=== PATIENT | female | born 1955 ===

== ENCOUNTER 2017-06-05 10:01 | Emergency (ER) | payer OTHER, MEDICAID ==
[2017-06-05 10:01] VITALS: BMI 48.6
[2017-06-05] MEDS ORDERED: Sodium Chloride 0.9% 1,000 ML IV ONE (10:41)
--- NOTE | 2017-06-05 10:41 | C.PDOC ---
History Of Present Illness 06/05/2017 Evelina Mccurdy is a 61 year old female, whose past medical history includes appendicitis, cholecystitis, and hernia repair, presents to the emergency department complaining of abdominal pain in the epigastric region since yesterday. Patient reports yesterday having coffee with milk and began vomiting , feeling lightheadedness, abdominal bloating, and dehydrated. Patient notes taking Zofran, Pepcid, and Bentyl yesterday, but there was no significant relief. Last bowel movement was this morning and according to patient GI Dr. Crisostomo stated patient had stomach inflammation. Patient denies chest pain, shortness of breath, headache, fever, chills, cough, diarrhea, dysuria, hematuria, frequency, flank pain, or other complaints. EPIG PAIN, VOMITING SINCE YEST. IMMEDIATE ONSET AFTER HAVING COFFEE W MILK, PS SIM PAIN IN PAST WHEN WOULD DRINK MILK. PAIN SIM TO PRIOR. GENERALIZED. NO RELIEF W ZOFRAN, PEPCID, BENTYL YEST. NO MEDS TAKEN TODAY. PSH APPY, GRANT, HERNIA REPAIR, LOS. LAST BM THIS MORNING. +LIGHTHEADEDNESS "i THINK IM BECOMING DEHYDRATED". +ABD BLOATING. NO FEVER. GI DR CRISOSTOMO. PS DX "INFLAMMATION IN MY STOMACH" EXAM MILD DIST NONTOXIC HEENT ANICTERIC; MM DRY ABD SOFT NT ND NO R/G REMAINDER NEG Time Seen by Provider: 06/05/17 10:33 Chief Complaint (Nursing): GI Problem History Per: Patient Onset/Duration Of Symptoms: Sudden Onset (yesterday ) Current Symptoms Are (Timing): Still Present Context: Food Associated Symptoms: Nausea, Vomiting Last Bowel Movement: Today (this morning) Recent travel outside of the [place]: No Abnormal Vaginal Bleeding: No Past Medical History Reviewed: Historical Data, Nursing Documentation, Vital Signs Vital Signs: Last Vital Signs Temp 97.7 F 06/05/17 10:10 Pulse 55 L 06/05/17 11:55 Resp 16 06/05/17 11:55 BP 110/62 06/05/17 11:55 Pulse Ox 96 06/05/17 11:55 - Medical History PMH: Asthma, Bronchitis (2013), Diabetes, Fractures (RIGHT ANKLE RIGHT SHOULDER) , Gall Bladder Disease, HTN, Hypothyroidism, Mitral Valve Prolapse, Sleep Apnea Surgical History: Appendectomy, Cholecystectomy, Endoscopy, Tonsillectomy Family History: States: Unknown Family Hx - Social History Hx Tobacco Use: No Hx Alcohol Use: No Hx Substance Use: No - Immunization History Hx Tetanus Toxoid Vaccination: No Hx Influenza Vaccination: No Hx Pneumococcal Vaccination: No Review Of Systems Except As Marked, All Systems Reviewed And Found Negative. Constitutional: Negative for: Fever Cardiovascular: Negative for: Chest Pain Respiratory: Negative for: Shortness of Breath Gastrointestinal: Positive for: Nausea, Vomiting, Abdominal Pain (epigastric region), Other (abdominal bloating) Neurological: Positive for: Other (lightheadedness). Negative for: Headache Physical Exam - Physical Exam Appears: Well, Non-toxic, In Acute Distress (mild) Skin: Normal Color, Warm, Dry Head: Atraumatic, Normacephalic Eye(s): bilateral: Normal Inspection, PERRL, EOMI Nose: Normal Oral Mucosa: Dry Throat: Normal Neck: Normal Cardiovascular: Rhythm Regular Respiratory: Normal Breath Sounds Gastrointestinal/Abdominal: Normal Exam, Soft, No Tenderness, No Distention, No Guarding, No Rebound Back: Normal Inspection Extremity: Normal ROM Neurological/Psych: Oriented x3, Normal Speech, Normal Cognition Gait: Steady ED Course And Treatment - Laboratory Results Result Diagrams: 06/05/17 11:05 06/05/17 11:05 ECG: Interpreted By Pr ECG Rhythm: Sinus Bradycardia ECG Interpretation: Normal Rate From EC O2 Sat by Pulse Oximetry: 95 (on RA) Pulse Ox Interpretation: Normal Progress - Re-Evaluation Re-evaluation Note: 06/05/17 12:42 FEELS BETTER, NV RESOLVED. NO S/S ACUTE ABD. - Data Reviewed Data Reviewed: Lab, EKG, Old records Medical Decision Making Medical Decision Makin06/05/2017 Impression: 61 year old female with epigastric pain and vomiting. Plan: -- Labs -- Morphine, Pepcid, Protonix, Reglan, and Sodium Chloride -- Reassess and disposition Progress Notes: Disposition Counseled Patient/Family Regarding: Studies Performed, Diagnosis, Need For Followup, Rx Given - Disposition Referrals: YOUR,GI DOCTOR [Other] Disposition: HOME/ ROUTINE Disposition Time: 12:43 Condition: IMPROVED Prescriptions: Metoclopramide [Reglan] 1 tab PO TID PRN #25 tab PRN Reason: Nausea/Vomiting oxyCODONE/Acetaminophen [Percocet 5/325 mg Tab] 1 ea PO QID #8 tab Instructions: Acute Abdominal Pain (ED) Forms: [facility] (Irish) - Clinical Impression Clinical Impression: Abdominal pain, Vomiting - Scribe Statement The provider has reviewed the documentation as recorded by the Scribe 06/05/2017 Patt Montgomery Attestation: All medical record entries made by the Scribe were at my direction and personally dictated by me. I have reviewed the chart and agree that the record accurately reflects my personal performance of the history, physical exam, medical decision making, and the department course for this patient. I have also personally directed, reviewed, and agree with the discharge instructions and disposition.
[2017-06-05] MEDS ORDERED: Morphine 4 MG/ML VIAL ONE ×2 (10:51→13:13)
[2017-06-05] MEDS ORDERED: Sodium Chloride 0.9% 1,000 ML ONE (10:52)
[2017-06-05 11:08] LABS: BASO # 0.1 K/uL (0.0-0.2); EOS # 0.1 K/uL (0.0-0.7); EOS % 1.3 % (0.0-4.0); HEMOGLOBIN 13.9 g/dL (11.0-16.0); LYMPH # 1.6 K/uL (1.0-4.3); LYMPH % 18.8 % (20.0-40.0); MEAN CELL VOLUME 84.3 fL (81.0-99.0); MEAN CORPUSCULAR HEMOGLOBIN 27.7 pg (27.0-31.0); MEAN CORPUSCULAR HGB CONC 32.8 g/dL (33.0-37.0); MEAN PLATELET VOLUME 8.7 fL (7.2-11.7); MONO # 0.5 K/uL (0.0-0.8); MONO % 6.3 % (0.0-10.0); NEUT # 6.3 K/uL (1.8-7.0); NEUT % 72.6 % (50.0-75.0); NRBC % 0.1 % (0.0-2.0); RBC 5.03 Mil/uL (3.80-5.20); RED CELL DISTRIBUTION WIDTH 13.9 % (11.5-14.5); WHITE BLOOD COUNT 8.7 K/uL (4.8-10.8)
[2017-06-05 11:17] LABS: ALBUMIN 4.3 g/dL (3.5-5.0)
[2017-06-05 11:19] LABS: GFR AFRICAN-AMERICAN > 60; GFR NON-AFRICAN AMERICAN 56
[2017-06-05 11:20] LABS: ALB/GLOB RATIO 1.3 (1.0-2.1); ALT/SGPT 39 U/L (9-52); AST/SGOT 20 U/L (14-36); BLOOD UREA NITROGEN 13 mg/dL (7-17); CALCIUM 9.3 mg/dl (8.6-10.4); LIPASE 82 U/L (23-300)
[2017-06-05 11:56] VITALS: RESP 16
[2017-06-05 14:02] VITALS: BP 121/68; PULSE 60; TEMP 98.2; O2SAT 100
--- NOTE | 2017-06-06 14:22 | CARD ---
APPROVED REPORT EKG Measurement Heart [id number] IN [id number] [id number] <Conclusion> Sinus bradycardia Cannot rule out Inferior infarct, age undetermined Abnormal ECG
== END 2017-06-05 14:02 | disposition home or self-care (01) ==
LOC: C.ER 10:01
DX: R10.13 Epigastric pain (principal); R11.2 Nausea with vomiting, unspecified
CPT/HCPCS: 80053; 83690; 85025; 93005; 96361; 96374; 96375; 96376; 99285; C9113; J2270; J2765; J7040

== ENCOUNTER 2017-07-07 06:01 | Day surgery (SDC) | payer MEDICARE, MEDICAID ==
[2017-06-27 09:02] VITALS: BMI 36.3
[2017-07-07] MEDS ORDERED: Lidocaine 2% Inj (20ml) ONE (07:30)
[2017-07-07] MEDS ORDERED: Lactated Ringer's 1,000 ML IV ONE (07:50)
[2017-07-07] MEDS ORDERED: Propofol 10 mg/ml Inj (20 ML) ONE (07:51)
[2017-07-07] MEDS ORDERED: Midazolam 2 MG/2 ML VIAL ONE (07:51)
[2017-07-07] MEDS ORDERED: Ciprofloxacin 400mg/200ml D5W 400 MG/200 ML BAG IVPB ONE (07:52)
[2017-07-07] MEDS: Bupivacaine HCl 0.5% PF (10 ml) Inj ONE ×2 (08:31→09:03)
[2017-07-07] MEDS ORDERED: Sodium Chloride 0.9% 20 ML IV ONE (08:44)
--- NOTE | 2017-07-07 09:39 | PCM.SURG1 ---
Surgeon's Initial Post Op Note - Surgeon's Notes Surgeon: Dr. Avis Berrios DPM Idea Worker: Dr. Yeimi Amin PGY-1 Type of Anesthesia: IV Sedation, Local Anesthesia Administered By: Dr. Lopez Pre-Operative Diagnosis: Right foot achilles tendonitis with lateral ankle scaring Operative Findings: See Dictation Post-Operative Diagnosis: Same. M: 4-0 monocryl. I: 17 cc of 1:1 2% lidocain plain : 0.5% marcaine plain, 10cc of 2% lidocain plain, 10 cc of 0.5% marcaine plain, amnion injection, PRP injection, 1 mL of dexamethasone Operation Performed: Ultrasound guided right achilles tendon and lateral ankle debridement using Tennex, Amnion injection, PRP injection to the right achilles tendon Specimen/Specimens Removed: none Estimated Blood Loss: EBL {In ML}: 5 Blood Products Given: N/A Drains Used: No Drains Post-Op Condition: Good Date of Surgery/Procedure: 07/07/17 Time of Surgery/Procedure: 09:25
[2017-07-07 09:42] VITALS: O2SAT 100
[2017-07-07] MEDS ORDERED: Lactated Ringer's 1,000 ML IV SCH (09:45)
[2017-07-07] MEDS: HYDROmorphone 0.5 mg/0.5 ml ISec IVP PRN ×3 (09:49→10:40)
[2017-07-07] MEDS ORDERED: Oxycodone/Acetaminophen 5/325 mg Tab PO PRN ×2 (11:30→11:36)
[2017-07-07 11:32] VITALS: BP 150/90; PULSE 71; RESP 18; TEMP 97.3
--- NOTE | 2017-07-07 21:54 | OP ---
PROCEDURE DATE: 07/07/2017 PREOPERATIVE DIAGNOSIS: Right Achilles tendonitis with lateral ankle scarring. POSTOPERATIVE DIAGNOSIS: Right Achilles tendonitis with lateral ankle scarring. NAME OF THE PROCEDURE: Ultrasound-guided right Achilles tendon and lateral ankle Tenex procedure with amnio and PRP injection to the right Achilles tendon. SURGEON: Avis Berrios DPM GRINDER HAND: Yeimi Amin DPM, PYG-1. TYPE OF ANESTHESIA: IV sedation with local. ANESTHESIA ADMINISTERED BY: Dr. Johns. INDICATION: The patient is a [id number] with above diagnosis. The patient has exhausted all conservative treatment at this time and now requires surgical intervention. The patient signed the consent after careful explanation of risks, benefits, complication, and alternative for this procedure. No guarantees were given nor implied. PREPARATION: The patient was brought into the operating room and was placed on the operating table in lateral position. A timeout was performed for identification of the correct patient and the procedure. After induction of an IV sedation, the patient received a total of 17 mL of 1:1 mixture of 2% lidocaine plain and 0.5% Marcaine plain in a local block-type fashion to the right lateral ankle as well as the posterior ankle. Once the local anesthesia was achieved, the right foot and ankle was then prepped and draped in a normal sterile manner. No tourniquet was used during this procedure. Attention was then directed towards the right lateral ankle, anterior and inferior to the lateral malleolus. A sterile sleeve was placed over the ultrasound transducer and a diagnostic ultrasound was performed. The anatomy was identified and the diseased thickened area of the scar tissue was seen at the anterior and inferior aspect of the lateral malleolus. At this point, a #15 blade was then introduced to create a track down to the scar tissue; one stab incision placed, 1 cm proximal to the tip of the lateral malleolus. A 10 mL of 2% lidocaine plain was injected at this point. The TX one head hand piece was introduced. Once the tip was located in hypoechoic lesion, the foot pedal was depressed and area was debrided and tissue excised. Once all the hypoechoic lesion was excised, 4-0 Monocryl was used to suture to close the surgical site. Next, attention was driven towards the posteromedial aspect of the right ankle superior to the Achilles tendon insertion, sterile sleeve was placed over ultrasound transducer and diagnostic ultrasound was performed, anatomy was identified and diseased thickened area of Achilles tendon was visualized. A #15 blade was then introduced to create a track down to the diseased tendon. One stab incision was placed on the posteromedial aspect of the right ankle superior to the Achilles tendon insertion, 10 mL of 0.5% Marcaine plain was injected at this point. The TX one hand piece was introduced once the tip was located in the hypoechoic lesion, the foot pedal was depressed. Then, the area was debrided and tissue excised. Once all the hypoechoic lesion was excised, platelet rich plasma and amnio cells were injected into the area around the stab incision site. Following the procedure, 4-0 Monocryl was used to suture to close the surgical site, 1 mL of dexamethasone was injected to the posteromedial ankle. Surgical site dressed using Betadine-soaked Adaptic, 4 x 4 Kerlix and José Miguel bandage. POSTOPERATIVE CONDITION: The patient tolerated the anesthesia and procedure well and was escorted to the recovery room and vital signs were stable and neurovascular status intact to the right foot. The patient will follow up Dr. Berrios as an outpatient in podiatry clinic at [facility] once discharged from the . Yeimi Amin DPM Avis Berrios DPM
== END 2017-07-07 12:30 | disposition home or self-care (01) ==
LOC: C.SDS 06:01
PROVIDERS: ATTEND Podiatrist Foot & Ankle Surgery
DX: M76.61 Achilles tendinitis, right leg (principal)
CPT/HCPCS: 0232T; 11043; 82948; J0744; J1100; J1170; J2250; J2704; J3010; J7120

== ENCOUNTER 2017-12-15 17:12 | Emergency (ER) | payer MEDICARE, MEDICAID ==
[2017-12-15 18:11] VITALS: BMI 39.2
[2017-12-15 18:24] VITALS: RESP 16; O2SAT 98
[2017-12-15 19:29] LABS: BASO # 0.1 K/uL (0.0-0.2); BASO % 0.6 % (0.0-2.0); EOS # 0.3 K/uL (0.0-0.7); EOS % 3.2 % (0.0-4.0); HEMOGLOBIN 13.6 g/dL (11.0-16.0); LYMPH # 3.2 K/uL (1.0-4.3); LYMPH % 34.4 % (20.0-40.0); MEAN CORPUSCULAR HEMOGLOBIN 27.8 pg (27.0-31.0); MEAN CORPUSCULAR HGB CONC 33.5 g/dL (33.0-37.0); MEAN PLATELET VOLUME 8.4 fL (7.2-11.7); MONO # 0.9 K/uL (0.0-0.8); MONO % 9.3 % (0.0-10.0); NEUT % 52.5 % (50.0-75.0); RBC 4.88 Mil/uL (3.80-5.20); RED CELL DISTRIBUTION WIDTH 14.5 % (11.5-14.5); WHITE BLOOD COUNT 9.4 K/uL (4.8-10.8)
[2017-12-15 19:46] LABS: ALB/GLOB RATIO 1.3 (1.0-2.1); ALBUMIN 4.2 g/dL (3.5-5.0); ALT/SGPT 26 U/L (9-52); AST/SGOT 19 U/L (14-36); BLOOD UREA NITROGEN 18 mg/dL (7-17); CALCIUM 9.7 mg/dl (8.6-10.4); GFR AFRICAN-AMERICAN > 60; GFR NON-AFRICAN AMERICAN > 60
--- NOTE | 2017-12-15 20:15 | CT ---
EXAM: CT Head Without Intravenous Contrast CLINICAL HISTORY: 62 years old, female; Signs and symptoms; Dizziness; Additional info: R/O ich TECHNIQUE: Axial computed tomography images of the head/brain without intravenous contrast. All CT scans at this facility use one or more dose reduction techniques, viz.: automated exposure control; ma/kV adjustment per patient size (including targeted exams where dose is matched to indication; i.e. head); or iterative reconstruction technique. COMPARISON: No relevant prior studies available. FINDINGS: Brain: Mild atrophy. No intracranial hemorrhage. No mass. No definite edema. Ventricles: No hydrocephalus. Bones/joints: No acute fracture. Soft tissues: Unremarkable. Vasculature: Mild atherosclerotic disease of intracranial arteries. Sinuses: No acute sinusitis. Mastoid air cells: No mastoid effusion. Orbits: Unremarkable as visualized. IMPRESSION: 1. No definite acute intracranial abnormality. 2. Incidental/non-acute findings are described above.
[2017-12-15 21:16] VITALS: BP 156/95; PULSE 92; TEMP 98.1
--- NOTE | 2017-12-15 23:27 | C.PDOC ---
History Of Present Illness 62 year old female presents to the ED c/o intermittent dizziness and CP for 1 month. Patient also reports her blood pressure has been fluctuating and she reports she is compliant with her medication. Patient's BP medication recently were increased by her PMD. Patient denies fever, cough, recent travel, sick contacts. Chief Complaint (Nursing): Dizziness/Lightheaded History Per: Patient History/Exam Limitations: no limitations Onset/Duration Of Symptoms: Days Current Symptoms Are (Timing): Still Present Associated Symptoms Preceding Syncopal Episode: No Predromal Symptoms (Sudden Onset) Seizure Or Post-ictal Symptoms: None Fall Associated With With Symptoms: No Severity: None Recent travel outside of the [place]: No Additional History Per: Patient Past Medical History Reviewed: Historical Data, Nursing Documentation, Vital Signs Vital Signs: Last Vital Signs Temp 98.1 F 12/15/17 21:15 Pulse 92 H 12/15/17 21:15 Resp 16 12/15/17 21:15 BP 156/95 H 12/15/17 21:15 Pulse Ox 98 12/15/17 23:30 - Medical History PMH: Asthma, Bronchitis (2013), Diabetes, Fractures (RIGHT ANKLE RIGHT SHOULDER) , Gall Bladder Disease, HTN, Hypothyroidism, Mitral Valve Prolapse, Sleep Apnea (no c pap) Denies: Chronic Kidney Disease Surgical History: Appendectomy, Cholecystectomy, Endoscopy, Tonsillectomy Family History: States: Unknown Family Hx - Social History Hx Tobacco Use: No Hx Alcohol Use: No Hx Substance Use: No - Immunization History Hx Tetanus Toxoid Vaccination: No Hx Influenza Vaccination: No Hx Pneumococcal Vaccination: No Review Of Systems Constitutional: Negative for: Fever, Chills Cardiovascular: Positive for: Chest Pain Respiratory: Negative for: Cough, Shortness of Breath Gastrointestinal: Negative for: Nausea, Vomiting, Abdominal Pain Skin: Negative for: Rash Neurological: Positive for: Dizziness. Negative for: Weakness, Numbness, Headache Physical Exam - Physical Exam Appears: Non-toxic, No Acute Distress Skin: Normal Color, Warm, Dry Head: Atraumatic, Normacephalic Eye(s): bilateral: Normal Inspection Nose: No Discharge, No Deformity Oral Mucosa: Moist Neck: Normal ROM, Supple Chest: Symmetrical Cardiovascular: Rhythm Regular, No Murmur Respiratory: Normal Breath Sounds, No Rales, No Rhonchi, No Wheezing Gastrointestinal/Abdominal: Soft, No Tenderness, No Guarding, No Rebound Extremity: Normal ROM, No Pedal Edema, No Deformity, No Swelling Neurological/Psych: Oriented x3, Normal Speech, Normal Cognition Gait: Steady ED Course And Treatment - Laboratory Results Result Diagrams: 12/15/17 19:24 12/15/17 19:24 ECG: Interpreted By Me, Viewed By Me ECG Rhythm: Sinus Rhythm Rate From EC O2 Sat by Pulse Oximetry: 98 (On RA) Pulse Ox Interpretation: Normal - CT Scan/US CT head Other Rad Studies (CT/US): Read By Radiologist, Radiology Report Reviewed CT/US Interpretation: EXAM: CT Head Without Intravenous Contrast. CLINICAL HISTORY: 62 years old, female; Signs and symptoms; Dizziness; Additional info: R/O ich. TECHNIQUE: Axial computed tomography images of the head/brain without intravenous contrast. All CT scans at. this facility use one or more dose reduction techniques, viz.: automated exposure control; ma/kV. adjustment per patient size (including targeted exams where dose is matched to indication; i.e. head);. or iterative reconstruction technique. COMPARISON: No relevant prior studies available. FINDINGS: Brain: Mild atrophy. No intracranial hemorrhage. No mass. No definite edema. Ventricles: No hydrocephalus. Bones/ joints: No acute fracture. Soft tissues: Unremarkable. Vasculature: Mild atherosclerotic disease of intracranial arteries. Sinuses: No acute sinusitis. Mastoid air cells: No mastoid effusion. Orbits: Unremarkable as visualized. IMPRESSION: 1. No definite acute intracranial abnormality. 2. Incidental/non- acute findings are described above Medical Decision Making Medical Decision Making: Impression: dizziness and CP Plan: * EKG * CT head * Labs * CXR Disposition - Disposition Referrals: [facility] Allie Cavazos, [Non-Staff] - Disposition: HOME/ ROUTINE Disposition Time: 20:30 Condition: IMPROVED Additional Instructions: Thank you for letting us take care of you today. The emergency medical care you received today was directed at your acute symptoms. If you were prescribed any medication, please fill it and take as directed. It may take several days for your symptoms to resolve. Return to the Emergency Department if your symptoms worsen, do not improve, or if you have any other problems. Please contact your doctor or call one of the physicians/clinics you have been referred to that are listed on the Patient Visit Information form that is included in your discharge packet. Bring any paperwork you were given at discharge with you along with any medications you are taking to your follow up visit. Our treatment cannot replace ongoing medical care by a primary care provider (PCP) outside of the emergency department. Thank you for allowing the [facility] team to be part of your care today. Follow up with your doctor in 1-2 days for re-evaluation and further management. Prescriptions: Metoclopramide [Reglan] 10 mg PO Q8 PRN #15 tab PRN Reason: Dizziness Instructions: Vertigo (a Type of Dizziness) (DC) Forms: [employer] ([place]) - Clinical Impression Clinical Impression: Dizziness - Scribe Statement The provider has reviewed the documentation as recorded by the Scribe Twan Ty All medical record entries made by the Scribe were at my direction and personally dictated by me. I have reviewed the chart and agree that the record accurately reflects my personal performance of the history, physical exam, medical decision making, and the department course for this patient. I have also personally directed, reviewed, and agree with the discharge instructions and disposition.
--- NOTE | 2017-12-16 08:45 | RAD ---
PROCEDURE: CHEST RADIOGRAPH, 1 VIEW HISTORY: chest pain COMPARISON: 05/30/2017 FINDINGS: LUNGS: No pulmonary infiltrate. Stable 6 mm nodule right lower lobe. Likely calcified granuloma. PLEURA: No pneumothorax or pleural fluid seen. CARDIOVASCULAR: Normal. OSSEOUS STRUCTURES: No significant abnormalities. VISUALIZED UPPER ABDOMEN: Normal. OTHER FINDINGS: None. IMPRESSION: No active disease.
--- NOTE | 2017-12-16 23:15 | CARD ---
APPROVED REPORT EKG Measurement Heart [id number] VT 162P65 [id number] <Conclusion> Normal sinus rhythm with sinus arrhythmia Nonspecific T wave abnormality Abnormal ECG
== END 2017-12-15 21:16 | disposition home or self-care (01) ==
LOC: C.ER 17:12
DX: R42 Dizziness and giddiness (principal)

== ENCOUNTER 2018-06-20 11:23 | Emergency (ER) | payer MEDICARE, MEDICAID ==
[2018-06-20 11:23] VITALS: BMI 39.2
[2018-06-20] MEDS ORDERED: Iohexol 240 (50 ml) PO STA (12:39)
[2018-06-20] MEDS ORDERED: Sodium Chloride 0.9% 1,000 ML IV ONE (12:39)
[2018-06-20 12:48] LABS: BASO # 0.1 K/uL (0.0-0.2); BASO % 1.2 % (0.0-2.0); EOS # 0.4 K/uL (0.0-0.7); EOS % 4.2 % (0.0-4.0); LYMPH # 2.6 K/uL (1.0-4.3); LYMPH % 29.8 % (20.0-40.0); MEAN CORPUSCULAR HEMOGLOBIN 29.2 pg (27.0-31.0); MEAN CORPUSCULAR HGB CONC 35.2 g/dL (33.0-37.0); MEAN PLATELET VOLUME 8.4 fL (7.2-11.7); MONO # 0.9 K/uL (0.0-0.8); MONO % 10.8 % (0.0-10.0); NEUT # 4.6 K/uL (1.8-7.0); NRBC % 0.1 % (0.0-2.0); RBC 5.12 Mil/uL (3.80-5.20); WHITE BLOOD COUNT 8.6 K/uL (4.8-10.8)
[2018-06-20] MEDS ORDERED: Iohexol 240 (50 ml) ONE (12:52)
[2018-06-20] MEDS ORDERED: Sodium Chloride 0.9% 1,000 ML ONE (12:52)
[2018-06-20 13:02] LABS: ALB/GLOB RATIO 1.6 (1.0-2.1); ALBUMIN 4.9 g/dL (3.5-5.0); ALT/SGPT 31 U/L (9-52); AST/SGOT 20 U/L (14-36); BLOOD UREA NITROGEN 21 mg/dL (7-17); CALCIUM 9.8 mg/dl (8.6-10.4); GFR NON-AFRICAN AMERICAN > 60; LIPASE 79 U/L (23-300)
--- NOTE | 2018-06-20 13:18 | C.PDOC ---
History Of Present Illness 62 y/o female patients with past SHx of appendectomy, hernia repair and cholecystectomy presents to the ED with c/o diffuse abdominal pain associated with nausea for the past week. (+) dysuria. Patient reports having multiple episodes of non-bloody emesis for the past few days. She is unable tolerate PO. Patient took Bentyl with no relief in symptoms. Patient also states the last time she had diarrhea was four days ago. She denies fever, chills or any other associated symptoms. Guest Advisor: Dr. Charlene Crisostomo Time Seen by Provider: 06/20/18 12:28 Chief Complaint (Nursing): Abdominal Pain History Per: Patient History/Exam Limitations: no limitations Onset/Duration Of Symptoms: Days (1 week) Current Symptoms Are (Timing): Still Present Severity: Mild Pain Scale Rating Of: 3 Location Of Pain/Discomfort: Diffuse Radiation Of Pain To:: None Quality Of Discomfort: "Pain" Associated Symptoms: Nausea, Vomiting, Diarrhea, Loss Of Appetite, Urinary Symptoms (dysuria ). denies: Fever, Chills Alleviating Factors: None Past Medical History Reviewed: Historical Data, Nursing Documentation, Vital Signs Vital Signs: Last Vital Signs Temp 98.4 F 06/20/18 19:09 Pulse 80 06/20/18 19:09 Resp 17 06/20/18 19:09 BP 126/79 06/20/18 19:09 Pulse Ox 98 06/22/18 19:05 - Medical History PMH: Asthma, Bronchitis (2013), Diabetes, Fractures (RIGHT ANKLE RIGHT SHOULDER) , Gall Bladder Disease, HTN, Hypothyroidism, Mitral Valve Prolapse, Sleep Apnea (no c pap) Surgical History: Appendectomy, Cholecystectomy, Endoscopy, Tonsillectomy Family History: States: Unknown Family Hx - Social History Hx Tobacco Use: No Hx Alcohol Use: No Hx Substance Use: No - Immunization History Hx Tetanus Toxoid Vaccination: No Hx Influenza Vaccination: No Hx Pneumococcal Vaccination: No Review Of Systems Constitutional: Negative for: Fever, Chills Cardiovascular: Negative for: Chest Pain Gastrointestinal: Positive for: Nausea, Vomiting, Abdominal Pain (diffuse abdominal pain ) Physical Exam - Physical Exam Appears: Non-toxic, No Acute Distress (lying on stretcher. talking on phone) Skin: Warm, Dry, No Rash Head: Atraumatic, Normacephalic Eye(s): bilateral: PERRL, EOMI Oral Mucosa: Moist Neck: Supple Chest: No Tenderness Cardiovascular: Rhythm Regular, No Murmur Respiratory: No Rales, No Rhonchi, No Wheezing, Other (Clear to auscultation bilaterally ) Gastrointestinal/Abdominal: Bowel Sounds (normoactive bs), Soft, Tenderness ( diffuse abdominal tenderness), No Distention, No Guarding, No Rebound Back: No CVA Tenderness Extremity: No Tenderness, No Calf Tenderness, No Swelling Neurological/Psych: Oriented x3, Normal Speech, Normal Cognition, Normal Motor, Normal Sensation ED Course And Treatment - Laboratory Results Result Diagrams: 06/20/18 12:43 06/20/18 12:43 O2 Sat by Pulse Oximetry: 98 (RA) Pulse Ox Interpretation: Normal - CT Scan/US CT Abd/Pelvis Other Rad Studies (CT/US): Read By Radiologist, Radiology Report Reviewed CT/US Interpretation: FINDINGS: LOWER THORAX: An interval benign calcified granuloma right middle lobe measuring to 7 mm is noted. The much smaller tiny approximately 1 to 2 mm lateral left lung base pleural or subpleural slightly hyperdense nodule is also unchanged. LIVER: Grossly unremarkable. No gross lesion or ductal dilatation. GALLBLADDER AND BILE DUCTS: Status post cholecystectomy -clips in gallbladder fossa. No change. PANCREAS: Unremarkable. No gross lesion or ductal dilatation. SPLEEN: Unremarkable. ADRENALS: Unremarkable. No mass. KIDNEYS AND URETERS: The left intrarenal collecting system appears more dilated than before. This is mostly intrarenal collecting system fullness - possibly of some concomitant parapelvic cyst cannot be excluded. No progressive approach for contiguous left hydroureter seen. No right hydroureter or right hydronephrosis noted. VASCULATURE: No aortic aneurysm. Bilateral hemipelvic phleboliths noted. BOWEL: No obstruction. No gross mural thickening. Rectosigmoid diverticulosis. No marked pericolonic dirty fat seen to suggest extensive inflammatory changes on this non IV contrast enhanced study. APPENDIX: Not definitively identified. There is hyperdensity seen in the region of the cecum and/or appendiceal region. It is unclear if this is appendicolith cysts and/or segments varying orally administered contrast either. No gross inflammatory changes here to suggest - the situs. However clinical correlation continued follow-up in this regard is advised. Previously more. PERITONEUM: Unremarkable. No free fluid. No free air. LYMPH NODES: Unremarkable. No enlarged lymph nodes. BLADDER: Unremarkable. REPRODUCTIVE: Uterus is tip towards the left as before. BONES: No acute fracture. OTHER FINDINGS: Fat only containing supraumbilical hernia. No bowel containing hernia seen. Possible capsules in the stomach per small filling defects here suggested. IMPRESSION: No bowel obstruction or free air. Rectosigmoid and left colonic diffuse diverticulosis. Exam is limited in terms of assessing for any possible mild diverticulitis. No gross perforation gross obstruction or abscess seen. No marked inflammatory changes of the surrounding fat seen. No interval left intrarenal pelviectasis/interval increased mild left pelvicaliectasis. The possibly of a concomitant left parapelvic renal cysts can also simulate this appearance this appearance was not seen on the prior study. No hydroureter seen. Calcified granuloma right lung base. The left lateral lung base subpleural pulmonary nodule is very tiny probably 2 mm and stable in appearance. No further workup of it is needed. Medical Decision Making Medical Decision Making: Impression: 62 year old with diffuse abdominal pain associated with nausea, vomiting and diarrhea for several days gastroenteritis, sbo, diverticulitis. Plan: CT A/P with PO contrast UA Urine Culture IV fluids 4mg IV Zofran Reassessment and disposition: 1714 pt lying comfortably on stretcher, talking on phone. sts she still has pain; no acute findings on ct scan, limited study due to lack of iv contrast. discussed with Dr Dalton;may send patient home. [address] Crisostomo; pt called his office, he sent in rx of flagyl for her. I will add Bentyl and cipro mat his directin and pt will f/u with him. pt understands and agrees to plan. Disposition Discussed With .: Ortiz Dalton Doctor Will See Patient In The: Office Counseled Patient/Family Regarding: Studies Performed, Diagnosis, Need For Followup, Rx Given - Disposition Referrals: Ortiz Dalton MD [Staff Provider] - Charlene Crisostomo [Staff Provider] - Disposition: HOME/ ROUTINE Disposition Time: 18:14 Condition: GOOD Additional Instructions: Please take cipro prescribed from the ED and Flagyl that Dr Crisostomo sent in for you as prescribed until completed. Take Bentyl as prescribed. Please Follow up with Dr Dalton and with Dr Crisostomo. Take Tylenol for pain if needed. Return to ER for any worse symptoms, Drink increased fluids. Prescriptions: Ciprofloxacin [Cipro] 500 mg PO BID #14 tab Dicyclomine [Bentyl] 20 mg PO BID #14 tab Instructions: Viral Gastroenteritis, Adult (DC) Forms: [facility] (Sinhala), General Discharge Instructions - Clinical Impression Clinical Impression: Gastroenteritis - Scribe Statement The provider has reviewed the documentation as recorded by the Scribe (Anastacia Enriquez) All medical record entries made by the Scribe were at my direction and personally dictated by me. I have reviewed the chart and agree that the record accurately reflects my personal performance of the history, physical exam, medical decision making, and the department course for this patient. I have also personally directed, reviewed, and agree with the discharge instructions and disposition.
[2018-06-20 15:08] LABS: PH,URINE 5.5 (5.0-8.0); SQUAMOUS EPITHIAL 8 /hpf (0-5); URINE BACTERIA RARE (<OCC); URINE BILIRUBIN 1+ (NEGATIVE); URINE BLOOD NEGATIVE (NEGATIVE); URINE CLARITY Clear (Clear); URINE COLOR YELLOW (YELLOW); URINE GLUCOSE (UA) NEGATIVE (Normal); URINE LEUKOCYTE ESTERASE NEGATIVE Leu/uL (Negative); URINE PROTEIN 1+ mg/dL (NEGATIVE); URINE UROBILINOGEN 0.2 mg/dL (0.2-1.0)
--- NOTE | 2018-06-20 15:57 | CT ---
Date of service: 06/20/2018 PROCEDURE: CT Abdomen and Pelvis with contrast HISTORY: abd pain COMPARISON: 02/09/2015 TECHNIQUE: Contrast dose: Omni 240- Visi 100 mls Radiation dose: Total exam DLP = 876 mGy-cm. This CT exam was performed using one or more of the following dose reduction techniques: Automated exposure control, adjustment of the mA and/or kV according to patient size, and/or use of iterative reconstruction technique. FINDINGS: LOWER THORAX: An interval benign calcified granuloma right middle lobe measuring to 7 mm is noted. The much smaller tiny approximately 1 to 2 mm lateral left lung base pleural or subpleural slightly hyperdense nodule is also unchanged. LIVER: Grossly unremarkable. No gross lesion or ductal dilatation. GALLBLADDER AND BILE DUCTS: Status post cholecystectomy -clips in gallbladder fossa. No change. PANCREAS: Unremarkable. No gross lesion or ductal dilatation. SPLEEN: Unremarkable. ADRENALS: Unremarkable. No mass. KIDNEYS AND URETERS: The left intrarenal collecting system appears more dilated than before. This is mostly intrarenal collecting system fullness - possibly of some concomitant parapelvic cyst cannot be excluded. No progressive approach for contiguous left hydroureter seen. No right hydroureter or right hydronephrosis noted VASCULATURE: No aortic aneurysm. Bilateral hemipelvic phleboliths noted BOWEL: No obstruction. No gross mural thickening. Rectosigmoid diverticulosis. No marked pericolonic dirty fat seen to suggest extensive inflammatory changes on this non IV contrast enhanced study APPENDIX: Not definitively identified. There is hyperdensity seen in the region of the cecum and/or appendiceal region. It is unclear if this is appendicolith cysts and/or segments varying orally administered contrast either No gross inflammatory changes here to suggest -the situs. However clinical correlation continued follow-up in this regard is advised. Previously more PERITONEUM: Unremarkable. No free fluid. No free air. LYMPH NODES: Unremarkable. No enlarged lymph nodes. BLADDER: Unremarkable. REPRODUCTIVE: Uterus is tip towards the left as before. BONES: No acute fracture. OTHER FINDINGS: Fat only containing supraumbilical hernia. No bowel containing hernia seen. Possible capsules in the stomach per small filling defects here suggested IMPRESSION: No bowel obstruction or free air. Rectosigmoid and left colonic diffuse diverticulosis. Exam is limited in terms of assessing for any possible mild diverticulitis. No gross perforation gross obstruction or abscess seen. No marked inflammatory changes of the surrounding fat seen. No interval left intrarenal pelviectasis/interval increased mild left pelvicaliectasis. The possibly of a concomitant left parapelvic renal cysts can also simulate this appearance this appearance was not seen on the prior study. No hydroureter seen Calcified granuloma right lung base. The left lateral lung base subpleural pulmonary nodule is very tiny probably 2 mm and stable in appearance. No further workup of it is needed.
[2018-06-20 17:33] VITALS: RESP 17
[2018-06-20 18:14] VITALS: O2SAT 98
[2018-06-20 19:10] VITALS: BP 126/79; PULSE 80; TEMP 98.4
== END 2018-06-20 19:09 | disposition home or self-care (01) ==
LOC: C.ER 11:23
DX: K52.9 Noninfective gastroenteritis and colitis, unspecified (principal)
CPT/HCPCS: 74176; 80053; 81001; 83690; 85025; 87086; 96361; 96374; 96375; 99285; J2405; J7030; Q9966

== ENCOUNTER 2018-08-03 11:29 | Emergency (ER) | payer MEDICARE, MEDICAID ==
[2018-08-03 11:30] VITALS: BMI 39.2
--- NOTE | 2018-08-03 13:29 | C.PDOC ---
History Of Present Illness 62 yo female comes in for evaluation of Right shoulder, B/L knees pain and head injury sustained 5 days ago after sustained mechanical fall. Pt reports, " trippped on side walk on my way to [place] and fell down onto Right side of body and hit head". Pt admits, pain is gradually getting worse over time, localized and worse with movement, mild headache. Otherwise, pt denies LOC, syncope, severe headache, dizziness, visual changes, focal deficits, denies anticoaguation therapy, neck pain, CP, SOB, dyspnea, palpitation, abd. pain, N/V, denies deformity, new weakness, sensory or vascular deficits to B/L UEs and lEs. Ambulate to Ed for evaluation w/baseline gait, not in any apparent distress. - HPI Time Seen by Provider: 08/03/18 12:26 Chief Complaint (Nursing): Upper Extremity Problem/Injury Past Medical History Vital Signs: Last Vital Signs Temp 98.6 F 08/03/18 11:46 Pulse 70 08/03/18 11:46 Resp 19 08/03/18 11:46 BP 130/90 08/03/18 11:46 Pulse Ox 96 08/03/18 11:46 - Medical History PMH: Asthma, Bronchitis, Diabetes, Fractures (RIGHT ANKLE RIGHT SHOULDER), Gall Bladder Disease, HTN, Hypothyroidism, Mitral Valve Prolapse, Sleep Apnea Denies: Chronic Kidney Disease Surgical History: Appendectomy, Cholecystectomy, Endoscopy, Tonsillectomy Family History: States: Unknown Family Hx - Social History Hx Tobacco Use: No Hx Alcohol Use: No Hx Substance Use: No - Immunization History Hx Tetanus Toxoid Vaccination: No Hx Influenza Vaccination: No Hx Pneumococcal Vaccination: No Physical Exam - Physical Exam Appears: Well, Non-toxic, No Acute Distress Skin: Normal Color, Warm, Dry, No Rash, No Ecchymosis Head: Atraumatic, Normacephalic Eye(s): bilateral: PERRL, EOMI Ear(s): Bilateral: Normal Nose: No Deformity, No Tenderness Oral Mucosa: Moist Tongue: Normal Appearing Throat: No Drooling Neck: Normal ROM, Trachea Midline, No Midline Cervical Tenderness, No Paracervical Tenderness, No Step Off Deformity, Supple Cardiovascular: Rhythm Regular, No Murmur, No JVD, Other ((-) carotid bruits B/L) Respiratory: No Decreased Breath Sounds, No Accessory Muscle Use, No Stridor, No Wheezing Gastrointestinal/Abdominal: Soft, No Tenderness Back: No Vertebral Tenderness, No Paraspinal Tenderness Extremity: Normal ROM, Tenderness (mild over superior aspect Right shoulder and anterior aspect of B/l knees), No Deformity, No Swelling Extremity: Bilateral: Atraumatic Neurological/Psych: Oriented x3, Normal Speech, Normal Motor, Normal Sensation, Normal Reflexes ED Course And Treatment O2 Sat by Pulse Oximetry: 96 Pulse Ox Interpretation: Normal - Other Rad Right shoulde and Right knee X-Ray: Interpreted by Me, Viewed By Me Interpretation: (+) mod DJD, no acute fx or dislocation - CT Scan/US CT head Other Rad Studies (CT/US): Read By Radiologist CT/US Interpretation: IMPRESSION: No acute intracranial pathology identified. CT C-spine Other Rad Studies (CT/US): Read By Radiologist CT/US Interpretation: . Date of service: 08/03/18. CT cervical spine without IV contrast. Indication: Injury. Comparison: None available. Technique: Axial computed tomography images were obtained of the cervical spine without the use of intravenous contrast. Coronal and sagittal reformatted images were created and reviewed. This CT exam was performed using 1 or more of the following dose reduction techniques: Automated exposure control, adjustment of the MAA and/or kV according to patient size, and/or use of iterative reconstruction technique. Radiation dose: Total exam DLP = 526.26 mGy-cm. Findings: Straightening of the normal cervical lordosis may be related to muscle spasm or positioning. Osseous demineralization. There is no evidence of acute fracture or subluxation. Multilevel degenerative changes including intervertebral disc space narrowing and osteophyte formation. Alignment appears otherwise unremarkable. The prevertebral soft tissues and spinolaminar lines appear intact. The lateral masses are preserved. The dens tip is intact. There is proper alignment of the lateral masses of C1 with the C2 vertebral body. Calcification at the expected level of the lower pole thyroid gland. Included portions of lung apices appear clear. Impression: Straightening of the normal cervical lordosis may be related to muscle spasm or positioning. No evidence of acute fracture or subluxation. Multilevel degenerative changes. Additional findings as above. Progress Note: On re-evaluation, pt is afebrile, hemodynamicay stable. Non- toxic. Ambulatory in ED with baseline gait. head: AT/NC. Neck: SUpple, (-) midline tenderness. ENT: no acute fidnings. Lungs: CTA B/L, BS equal B/L. CVS: (+)S1S2, reg. Abd: Benign. FAROM of B/L uEs and LEs, no ecchymoses noted, no deformity. Neuorlogicaly intact. CT head and C-spine review (-) acute findings c/w injury. Right shoulder and Right knees xray review (-) acute fx or dislocation, (+) mod DJD Right knee. Pt has clinical findings c/w head injury/post-concussion syndrome, Right Shoulder and Right knee contusion without fracture. Pt advised, ref. to F/u with PMD, Ortho in 2 -3 days for re-eavl. return to ED if any worsening or new changes. Disposition Counseled Patient/Family Regarding: Studies Performed, Diagnosis, Need For Followup, Rx Given - Disposition Referrals: Ortiz Dalton MD [Staff Provider] - Disposition: HOME/ ROUTINE Disposition Time: 13:48 Condition: STABLE Additional Instructions: LIght duty, avoid any phsyical activity for 1 week Observe for any new changes-increase in headache, vomiting, changes in mental status, lethargy or any other new changes-return to ED immediately for re- evaluation. Follow up with PMD in2 -3 days for re-evaluation. Prescriptions: traMADol [Ultram] 50 mg PO TID #7 tab Instructions: Shoulder Sprain, Concussion, Adult (DC), Closed Head Injury, Knee Sprain (DC) Forms: [facility] (Maldivian) - Clinical Impression Clinical Impression: Head injury, Shoulder sprain, Knee contusion
--- NOTE | 2018-08-03 13:34 | CT ---
Date of service: 08/03/2018 PROCEDURE: CT HEAD WITHOUT CONTRAST. HISTORY: injury COMPARISON: Noncontrast head CT performed 12/15/17 TECHNIQUE: Axial computed tomography images were obtained through the head/brain without intravenous contrast. Radiation dose: Total exam DLP = 975.00 mGy-cm. This CT exam was performed using one or more of the following dose reduction techniques: Automated exposure control, adjustment of the mA and/or kV according to patient size, and/or use of iterative reconstruction technique. FINDINGS: HEMORRHAGE: No intracranial hemorrhage. BRAIN: No mass effect or edema. The spring-white matter differentiation appears intact. Please note that MRI with diffusion imaging is more sensitive in the detection of acute ischemic event. VENTRICLES: No hydrocephalus. CALVARIUM: Unremarkable. PARANASAL SINUSES: Unremarkable as visualized. No significant inflammatory changes. MASTOID AIR CELLS: Unremarkable as visualized. No inflammatory changes. OTHER FINDINGS: None. IMPRESSION: No acute intracranial pathology identified.
--- NOTE | 2018-08-03 13:43 | CT ---
Date of service: 08/03/18 CT cervical spine without IV contrast Indication: Injury Comparison: None available Technique: Axial computed tomography images were obtained of the cervical spine without the use of intravenous contrast. Coronal and sagittal reformatted images were created and reviewed. This CT exam was performed using 1 or more of the following dose reduction techniques: Automated exposure control, adjustment of the MAA and/or kV according to patient size, and/or use of iterative reconstruction technique. Radiation dose: Total exam DLP = 526.26 mGy-cm. Findings: Straightening of the normal cervical lordosis may be related to muscle spasm or positioning. Osseous demineralization. There is no evidence of acute fracture or subluxation. Multilevel degenerative changes including intervertebral disc space narrowing and osteophyte formation. Alignment appears otherwise unremarkable. The prevertebral soft tissues and spinolaminar lines appear intact. The lateral masses are preserved. The dens tip is intact. There is proper alignment of the lateral masses of C1 with the C2 vertebral body. Calcification at the expected level of the lower pole thyroid gland. Included portions of lung apices appear clear. Impression: Straightening of the normal cervical lordosis may be related to muscle spasm or positioning. No evidence of acute fracture or subluxation. Multilevel degenerative changes. Additional findings as above.
[2018-08-03 13:58] VITALS: BP 114/77; PULSE 74; RESP 18; TEMP 97.9
--- NOTE | 2018-08-03 14:18 | RAD ---
Date of service: 08/03/2018 PROCEDURE: Radiographs of the Right Shoulder HISTORY: injury COMPARISON: No prior. FINDINGS: BONES: No fracture or dislocation. JOINTS: Glenohumeral and acromioclavicularosteoarthritis. SOFT TISSUES: Normal. OTHER FINDINGS: A 6 mm calcified granuloma likely smaller punctate benign granuloma in the right lung is noted. These are unchanged compared with an 08/15/2015 chest x-ray. IMPRESSION: No fracture or dislocation. Right shoulder arthrosis. Right lung granulomatous disease stable since 2014
--- NOTE | 2018-08-03 14:20 | RAD ---
Date of service: 08/03/2018 PROCEDURE: Right Knee Radiographs. HISTORY: injury COMPARISON: None. FINDINGS: BONES: No fracture appreciated JOINTS: Tricompartmental advanced osteoarthrosis Varus orientation noted this non standing study. JOINT EFFUSION: None appreciated OTHER FINDINGS: Atherosclerotic vascular calcifications present. IMPRESSION: No fracture or dislocation. Tricompartmental advanced osteoarthrosis
[2018-08-03 16:59] VITALS: O2SAT 96
== END 2018-08-03 14:01 | disposition home or self-care (01) ==
LOC: C.ER 11:29
DX: F07.81 Postconcussional syndrome (principal); S43.401A Unspecified sprain of right shoulder joint, initial encounter; S40.011A Contusion of right shoulder, initial encounter; S80.01XA Contusion of right knee, initial encounter; W01.0XXA Fall on same level from slipping, tripping and stumbling without subsequent striking against object, initial encounter; Y92.480 Sidewalk as the place of occurrence of the external cause